=== PATIENT | female | born 1995 | race Caucasian/White ===

== ENCOUNTER 2024-01-24 20:23 | Emergency (ER) | payer BC, SELFPAY ==
[2024-01-24 20:32] VITALS: BP 140/85; PULSE 83; TEMP 36.8; O2SAT 100; BMI 27.5
[2024-01-24 21:05] LABS: Bilirubin Urine NEGATIVE (NEGATIVE); Blood Urine MODERATE (NEGATIVE); Clarity Urine CLEAR (CLEAR); Color Urine LT. YELLOW (YELLOW); Glucose Urine UA NEGATIVE (NEGATIVE); Ketones Urine NEGATIVE (NEGATIVE); Leukocyte Esterase Urine NEGATIVE (NEGATIVE); Nitrite Urine NEGATIVE (NEGATIVE); Protein Urine 30 mg/dL (NEG/TRACE); Urine Microscopic Indicated YES; Urobilinogen Urine 0.2 EU/dL (0.2-1.0); pH Urine 8.5 (5.0-9.0)
[2024-01-24 21:07] LABS: HCG Qualitative Urine* NEGATIVE (NEGATIVE); Internal Control Within Normal Limits
--- NOTE | 2024-01-24 21:34 | CT_ITS ---
[address] [address] Patient Name: KRISTY CASAS MRN: [id number] date: 1995 Sex: F Assigned Patient Location: ER Current Patient Location: ER Accession/Order Number: [id number] Exam Date: 01/24/2024 22:37 Report Date: 01/24/2024 22:55 At the request of: MANDY GARCIA Procedure: CT abdomen pelvis wo con EXAM: CT abdomen pelvis wo con TECHNIQUE: Axial CT images were obtained of the abdomen and pelvis without intravenous contrast. Sagittal and coronal reformatted images were also obtained. Dose reduction techniques were achieved by using automated exposure control and/or adjustment of mA and/or kV according to patient size and/or use of iterative reconstruction technique. HISTORY: Left flank pain COMPARISON: None. FINDINGS: Lower chest: The lower lungs are clear. Liver: The liver is homogeneous with normal contours and normal size. Gallbladder: The gallbladder is unremarkable. There is no intra or extrahepatic biliary dilatation. Pancreas: The pancreas is homogeneous without evidence for mass lesion or inflammation. Spleen: The spleen is unremarkable without evidence for mass lesion. Adrenal glands: The adrenal glands are unremarkable Kidneys and bladder: Small cyst of the lateral cortex right kidney. Mild left-sided hydronephrosis. Mild left-sided hydroureter. 5 mm stone of the left ureterovesical junction. GI Tract: Stomach is unremarkable. Visualized small bowel is unremarkable without evidence for obstruction or active inflammation. The appendix is unremarkable.The visualized portion of the large bowel is unremarkable. Reproductive: Unremarkable Lymph nodes: No retroperitoneal or abdominal lymphadenopathy. Vascular: The aorta is not dilated. Peritoneum: No free intraperitoneal air or fluid. No acute inflammation. Abdominal wall: Unremarkable without acute abnormality. CT/CT abdomen pelvis wo con IMPRESSION: 5 mm stone of the left ureterovesical junction resulting in mild left-sided hydroureteronephrosis. Electronically authenticated by: SHERRON GAGNON Date: 01/24/2024 22:55
--- NOTE | 2024-01-24 21:35 | ED.ABDPAIN1 ---
Documented by User: JESSE Kulkarni 01/24/24 21:39 HPI - Abdominal Pain General Chief Complaint: Abdominal Pain Stated Complaint: ABD PAIN Time Seen by Provider: 01/24/24 21:31 Source: patient Mode of arrival: walk-in Limitations: no limitations History of Present Illness HPI narrative: Patient is a 29-year-old female with no significant medical history who presents to the ER for left flank pain that began several hours ago. She reports pain radiating from the left low back into the left lower quadrant. She reports discomfort with urinating and believes she may have seen a blood tinge to her urine. No fevers or vomiting. Urine was obtained from triage showing blood but no other evidence of infection and negative test. No medications were taken prior to arrival. She has no history of kidney stone. She has had 2 previous C-sections and no other abdominal surgeries. Related Data Home Medications ?Medication ?Instructions ?Recorded ?Confirmed No Known Home Medications 01/24/24 01/24/24 Allergies Allergy/AdvReac Type Severity Reaction Status Date / Time No Known Drug Allergies Allergy Verified 01/24/24 20:31 Review of Systems ROS Constitutional Denies: fever or chills Ears, nose, mouth, and throat Denies: throat pain or nasal congestion Respiratory Denies: shortness of breath Gastrointestinal Denies: nausea or vomiting Genitourinary Reports: painful urination Musculoskeletal Reports: back pain; Denies: neck pain Neurological Denies: headache, numbness in extremities or weakness in extremities Hematologic/Lymphatic Denies: easy bruising or easy bleeding PFSH PFSH Social History Little interest or pleasure in doing things: not at all Feeling down, depressed, or hopeless: not at all Exam Narrative Exam Narrative: Gen.: Awake, alert, in no distress Head: Normocephalic, atraumatic ENT: Moist mucous membranes Respiratory: No respiratory distress Gastrointestinal: Abdomen is soft, nondistended and diffusely tender to palpation in the left lower quadrant with no guarding or rebound Back: Diffuse tenderness of the left low back into the left flank with no CVA tenderness Extremities: Moves extremities equally Psych: Normal mood and affect Neuro: No focal neuro deficit Skin: Warm, dry, intact Constitutional Vital Signs, click to edit/add: Last Vital Signs Temp 98.3 F 01/24/24 20:32 Pulse 83 01/24/24 20:32 Resp 18 01/24/24 20:32 BP 140/85 01/24/24 20:32 Pulse Ox 100 01/24/24 20:32 O2 Del Method Room Air 01/24/24 20:32 Course Vital Signs Vital signs: Vital Signs Temperature 98.3 F 01/24/24 20:32 Pulse Rate 83 01/24/24 20:32 Respiratory Rate 18 01/24/24 20:32 Blood Pressure 140/85 01/24/24 20:32 Pulse Oximetry 100 01/24/24 20:32 Oxygen Delivery Method Room Air 01/24/24 20:32 Temperature 98.3 F 01/24/24 20:32 Pulse Rate 83 01/24/24 20:32 Respiratory Rate 18 01/24/24 20:32 Blood Pressure 140/85 01/24/24 20:32 Pulse Oximetry 100 01/24/24 20:32 Oxygen Delivery Method Room Air 01/24/24 20:32 MDM - Abdominal Pain MDM Narrative Medical decision making narrative: 2137: Urine specimen with negative test and no evidence of infection. Patient is hemodynamically stable. She was ordered to have IV fluids, pain medication, nausea medication. Labs ordered, CT of the abdomen and pelvis without contrast ordered. Case is turned over to attending physician at this time for disposition. SHARED APC VISIT, PHYSICIAN ATTESTATION: [id number] I performed a substantive part of the MDM during the patient?s E/M visit. I personally evaluated and examined the patient. I personally made or approved the documented management plan and acknowledge its risk of complications. Medical Records Attestation: I reviewed the patient's medical records. Lab Data Attestation: I reviewed the patient's lab results. Labs: Lab Results 01/24/24 01/24/24 Range/Units 20:40 21:47 WBC 12.3 H (4.0-11.0) 10^3/uL RBC 4.19 L (4.20-5.40) 10^6/uL Hgb 12.8 (12.0-16.0) g/dL Hct 38.4 (36.0-48.0) % MCV 91.6 (81.0-99.0) fL MCH 30.5 (26.7-34.0) pg MCHC 33.3 (29.9-35.2) g/dL RDW 12.4 (11.0-15.0) % Plt Count 301 (150-450) 10^3/uL MPV 9.8 (9.5-13.5) fL Neut % (Auto) 73.1 (43.0-75.0) % Lymph % (Auto) 19.0 L (20.5-60.0) % Desha % (Auto) 6.6 (1.7-12.0) % Eos % (Auto) 0.5 L (0.9-7.0) % Baso % (Auto) 0.4 (0.2-2.0) % Neut # (Auto) 9.0 H (1.4-6.5) 10^3/uL Lymph # (Auto) 2.3 (1.2-3.8) 10^3/uL Desha # (Auto) 0.8 (0.3-0.8) 10^3/uL Eos # (Auto) 0.1 (0.0-0.7) 10^3/uL Baso # (Auto) 0.1 (0.0-0.1) 10^3/uL Abs Immat Gran (auto) 0.05 H (0.00-0.03) 10^3/uL Imm/Tot Granulo (auto) 0.4 (0.0-0.5) % Sodium 140 (136-145) mmol/L Potassium 3.5 (3.5-5.1) mmol/L Chloride 102 (98-107) mmol/L Carbon Dioxide 27.7 (21.0-32.0) mmol/L Anion Gap 13.8 BUN 12.0 (7.0-18.0) mg/dL Creatinine 1.17 H (0.55-1.02) mg/dL Est GFR ( Amer) >60 (>=60) Est GFR (Non-Af Amer) 55 L (>=60) BUN/Creatinine Ratio 10.3 Glucose 101 (74-106) mg/dL Lactate 1.2 (0.4-2.0) mmol/L Calcium 9.0 (8.5-10.1) mg/dL Total Bilirubin 0.4 (0.2-1.0) mg/dL AST 30 (15-37) U/L ALT 34 (14-59) U/L Alkaline Phosphatase 58 (46-116) U/L Total Protein 7.3 (6.4-8.2) g/dL Albumin 4.3 (3.4-5.0) g/dL Globulin 3.0 g/dL Albumin/Globulin Ratio 1.4 Urine Color Lt. yellow (YELLOW) Urine Clarity Clear (CLEAR) Urine pH 8.5 (5.0-9.0) Ur Specific [place] 1.020 (1.005-1.025) Urine Protein 30 A (NEG/TRACE) mg/dL Urine Glucose (UA) Negative (NEGATIVE) mg/dL Urine Ketones Negative (NEGATIVE) mg/dL Urine Occult Blood Moderate A (NEGATIVE) Urine Nitrite Negative (NEGATIVE) Urine Bilirubin Negative (NEGATIVE) Urine Urobilinogen 0.2 (0.2-1.0) EU/dL Ur Leukocyte Esterase Negative (NEGATIVE) Urine RBC 5-10 A (0-2) #/HPF Urine WBC 0-2 A (NONE SEEN) #/HPF Ur Squamous Epith Cells Few A (NONE/RARE) #/LPF Urine Crystals None seen (None Seen) #/HPF Urine Bacteria Small A (NONE SEEN) #/HPF Urine Casts None seen (NONE SEEN) #/LPF Urine Mucus None seen (NONE SEEN) Ur Culture Indicated? Yes Urine HCG, Qual Negative (NEGATIVE) Imaging Data Abdominal x-ray: Radiologist's impression: ITS Impressions Abdomen/Pelvis CT 01/24/24 21:34 IMPRESSION: 5 mm stone of the left ureterovesical junction resulting in mild left-sided hydroureteronephrosis. Electronically authenticated by: SHERRON GAGNON Date: 01/24/2024 22:55 Discharge Plan Discharge Stand Alone Forms: Work/School Release, Portal Instructions Chief Complaint: Abdominal Pain Clinical Impression: Left flank pain, Renal colic on left side Patient Disposition: Home, Self-Care Prescriptions / Home Meds: No Action No Known Home Medications Print Language: Jordanian Instructions: Renal Colic (ED) Additional Instructions: drink plenty of fluids and follow up with your doctor early next week Referrals: Physician,Non-Staff, MD [Primary Care Provider] - 1 week Documented by User: Cecil Armando MD 01/24/24 23:12 HPI - Abdominal Pain General Chief Complaint: Abdominal Pain Stated Complaint: ABD PAIN Time Seen by Provider: 01/24/24 21:31 Related Data Home Medications ?Medication ?Instructions ?Recorded ?Confirmed No Known Home Medications 01/24/24 01/24/24 Allergies Allergy/AdvReac Type Severity Reaction Status Date / Time No Known Drug Allergies Allergy Verified 01/24/24 20:31 PFSH PFS Social History Little interest or pleasure in doing things: not at all Feeling down, depressed, or hopeless: not at all Exam Constitutional Vital Signs, click to edit/add: Last Vital Signs Temp 98.3 F 01/24/24 20:32 Pulse 83 01/24/24 20:32 Resp 18 01/24/24 20:32 BP 140/85 01/24/24 20:32 Pulse Ox 100 01/24/24 20:32 O2 Del Method Room Air 01/24/24 20:32 Course Vital Signs Vital signs: Vital Signs Temperature 98.3 F 01/24/24 20:32 Pulse Rate 83 01/24/24 20:32 Respiratory Rate 18 01/24/24 20:32 Blood Pressure 140/85 01/24/24 20:32 Pulse Oximetry 100 01/24/24 20:32 Oxygen Delivery Method Room Air 01/24/24 20:32 Temperature 98.3 F 01/24/24 20:32 Pulse Rate 83 01/24/24 20:32 Respiratory Rate 18 01/24/24 20:32 Blood Pressure 140/85 01/24/24 20:32 Pulse Oximetry 100 01/24/24 20:32 Oxygen Delivery Method Room Air 01/24/24 20:32 MDM - Abdominal Pain MDM Narrative Medical decision making narrative: 2137: Urine specimen with negative test and no evidence of infection. Patient is hemodynamically stable. She was ordered to have IV fluids, pain medication, nausea medication. Labs ordered, CT of the abdomen and pelvis without contrast ordered. Case is turned over to attending physician at this time for disposition. care transferred at change of shift. Patient is feeling better. CT with 5mm stone at UV junction. Patient informed of diagnosis and discharged home SHARED APC VISIT, PHYSICIAN ATTESTATION: [id number] I performed a substantive part of the MDM during the patient?s E/M visit. I personally evaluated and examined the patient. I personally made or approved the documented management plan and acknowledge its risk of complications. Lab Data Labs: Lab Results 01/24/24 01/24/24 Range/Units 20:40 21:47 WBC 12.3 H (4.0-11.0) 10^3/uL RBC 4.19 L (4.20-5.40) 10^6/uL Hgb 12.8 (12.0-16.0) g/dL Hct 38.4 (36.0-48.0) % MCV 91.6 (81.0-99.0) fL MCH 30.5 (26.7-34.0) pg MCHC 33.3 (29.9-35.2) g/dL RDW 12.4 (11.0-15.0) % Plt Count 301 (150-450) 10^3/uL MPV 9.8 (9.5-13.5) fL Neut % (Auto) 73.1 (43.0-75.0) % Lymph % (Auto) 19.0 L (20.5-60.0) % Desha % (Auto) 6.6 (1.7-12.0) % Eos % (Auto) 0.5 L (0.9-7.0) % Baso % (Auto) 0.4 (0.2-2.0) % Neut # (Auto) 9.0 H (1.4-6.5) 10^3/uL Lymph # (Auto) 2.3 (1.2-3.8) 10^3/uL Desha # (Auto) 0.8 (0.3-0.8) 10^3/uL Eos # (Auto) 0.1 (0.0-0.7) 10^3/uL Baso # (Auto) 0.1 (0.0-0.1) 10^3/uL Abs Immat Gran (auto) 0.05 H (0.00-0.03) 10^3/uL Imm/Tot Granulo (auto) 0.4 (0.0-0.5) % Sodium 140 (136-145) mmol/L Potassium 3.5 (3.5-5.1) mmol/L Chloride 102 (98-107) mmol/L Carbon Dioxide 27.7 (21.0-32.0) mmol/L Anion Gap 13.8 BUN 12.0 (7.0-18.0) mg/dL Creatinine 1.17 H (0.55-1.02) mg/dL Est GFR ( Amer) >60 (>=60) Est GFR (Non-Af Amer) 55 L (>=60) BUN/Creatinine Ratio 10.3 Glucose 101 (74-106) mg/dL Lactate 1.2 (0.4-2.0) mmol/L Calcium 9.0 (8.5-10.1) mg/dL Total Bilirubin 0.4 (0.2-1.0) mg/dL AST 30 (15-37) U/L ALT 34 (14-59) U/L Alkaline Phosphatase 58 (46-116) U/L Total Protein 7.3 (6.4-8.2) g/dL Albumin 4.3 (3.4-5.0) g/dL Globulin 3.0 g/dL Albumin/Globulin Ratio 1.4 Urine Color Lt. yellow (YELLOW) Urine Clarity Clear (CLEAR) Urine pH 8.5 (5.0-9.0) Ur Specific [place] 1.020 (1.005-1.025) Urine Protein 30 A (NEG/TRACE) mg/dL Urine Glucose (UA) Negative (NEGATIVE) mg/dL Urine Ketones Negative (NEGATIVE) mg/dL Urine Occult Blood Moderate A (NEGATIVE) Urine Nitrite Negative (NEGATIVE) Urine Bilirubin Negative (NEGATIVE) Urine Urobilinogen 0.2 (0.2-1.0) EU/dL Ur Leukocyte Esterase Negative (NEGATIVE) Urine RBC 5-10 A (0-2) #/HPF Urine WBC 0-2 A (NONE SEEN) #/HPF Ur Squamous Epith Cells Few A (NONE/RARE) #/LPF Urine Crystals None seen (None Seen) #/HPF Urine Bacteria Small A (NONE SEEN) #/HPF Urine Casts None seen (NONE SEEN) #/LPF Urine Mucus None seen (NONE SEEN) Ur Culture Indicated? Yes Urine HCG, Qual Negative (NEGATIVE) Imaging Data Abdominal x-ray: Radiologist's impression: ITS Impressions Abdomen/Pelvis CT 01/24/24 21:34
[2024-01-24 21:53] LABS: Basophils Absolute Auto 0.1 10^3/uL (0.0-0.1); Basophils Percent Auto 0.4 % (0.2-2.0); Eosinophils Absolute Auto 0.1 10^3/uL (0.0-0.7); Eosinophils Percent Auto 0.5 % (0.9-7.0); Hematocrit 38.4 % (36.0-48.0); Hemoglobin 12.8 g/dL (12.0-16.0); Immature Granulocytes Abs Auto 0.05 10^3/uL (0.00-0.03); Immature Granulocytes Pct Auto 0.4 % (0.0-0.5); Lymphocytes Absolute Auto 2.3 10^3/uL (1.2-3.8); Mean Corpuscular HGB Conc 33.3 g/dL (29.9-35.2); Mean Corpuscular Hemoglobin 30.5 pg (26.7-34.0); Mean Corpuscular Volume 91.6 fL (81.0-99.0); Mean Platelet Volume 9.8 fL (9.5-13.5); Monocytes Absolute Auto 0.8 10^3/uL (0.3-0.8); Monocytes Percent Auto 6.6 % (1.7-12.0); Neutrophils Percent Auto 73.1 % (43.0-75.0); Platelet Count 301 10^3/uL (150-450); Red Blood Count 4.19 10^6/uL (4.20-5.40); Red Cell Distribution Width 12.4 % (11.0-15.0); White Blood Count 12.3 10^3/uL (4.0-11.0)
[2024-01-24] MEDS: 0.9 % SODIUM CHLORIDE 1,000 ML 1000 ML IV (21:53)
[2024-01-24] MEDS: HYDROMORPHONE HCL 1 MG/ML CARTRIDGE IVP (21:54)
[2024-01-24] MEDS: ONDANSETRON PF 4 MG/2 ML VIAL IV (21:56)
[2024-01-24] MEDS: KETOROLAC TROMETHAMINE 30 MG/ML VIAL IVP (21:56)
[2024-01-24 22:01] LABS: WBC Urine 0-2 #/HPF (NONE SEEN)
[2024-01-24 22:03] LABS: Cast Seen? NONE SEEN #/LPF (NONE SEEN); Crystals Seen? None Seen #/HPF (None Seen); Mucus Urine NONE SEEN (NONE SEEN); Squamous Epithelial Cell Urine FEW #/LPF (NONE/RARE); Urine Culture Indicated YES
[2024-01-24 22:04] LABS: Bacteria Urine SMALL #/HPF (NONE SEEN)
[2024-01-24 22:09] LABS: Alanine Aminotransferase 34 U/L (14-59); Albumin Globulin Ratio 1.4; Albumin Level 4.3 g/dL (3.4-5.0); Alkaline Phosphatase 58 U/L (46-116); Anion Gap 13.8; Aspartate Amino Transferase 30 U/L (15-37); BUN Creatinine Ratio 10.3; Bilirubin Total 0.4 mg/dL (0.2-1.0); Carbon Dioxide 27.7 mmol/L (21.0-32.0); Chloride 102 mmol/L (98-107); Estimated GFR (African America >60 (>=60); Estimated GFR (Non-African Ame 55 (>=60); Glucose 101 mg/dL (74-106); Potassium 3.5 mmol/L (3.5-5.1); Sodium 140 mmol/L (136-145); Total Protein 7.3 g/dL (6.4-8.2)
[2024-01-24 22:11] LABS: Lactate/Lactic Acid 1.2 mmol/L (0.4-2.0)
[2024-01-24] MEDS: KETOROLAC TROMETHAMINE 10 MG TABLET PO (23:34)
== END 2024-01-24 23:39 | disposition home or self-care (01) ==
PROVIDERS: Physician Assistant; Emergency Provider Internal Medicine
DX: R10.9 Unspecified abdominal pain (principal); N13.2 Hydronephrosis with renal and ureteral calculous obstruction
CPT/HCPCS: 36415; 74176; 80053; 81001; 83605; 84703; 85025; 87086; 96374; 96375; 99284; J1170; J1885; J2405